=== PATIENT | male | born 1985 | race Caucasian/White ===

== ENCOUNTER 2018-03-14 19:02 | Emergency (ER) | payer MEDICAID ==
[~2018-03-14] VITALS: Ht 172.7 cm; Wt 72.7 kg
[~2018-03-14 19:02] MED LIST: CYCL-1 PO
[2018-03-14 19:06] VITALS: BP 146/49
== END 2018-03-14 22:02 | disposition home or self-care (01) ==
LOC: ER 19:03
DX: M54.5 Low back pain (principal); F12.10 Cannabis abuse, uncomplicated; F11.10 Opioid abuse, uncomplicated; F15.10 Other stimulant abuse, uncomplicated; F14.10 Cocaine abuse, uncomplicated
CPT/HCPCS: 72100; 99284